=== PATIENT | female | born 1960 | race Hispanic/Latino ===

== ENCOUNTER 2021-10-31 13:34 | Inpatient (IN) | payer SELFPAY ==
[2021-10-31 13:37] VITALS: BP 120/80
--- NOTE | 2021-10-31 15:04 | Event Note ---
Face to Face: For this encounter I have reviewed the PA/CHANNEL EXECUTIVE documentation, treatment plan, medical decision making, and I had face to face time with this patient.
--- NOTE | 2021-10-31 15:17 | Emergency Department Report ---
- General Chief complaint: Weakness Stated complaint: WEAKNESS Time Seen by Provider: 10/31/21 15:10 Source: EMS Mode of arrival: Ambulatory Limitations: No Limitations - History of Present Illness Initial comments: Patient presents with weakness. She apparently came in by ambulance because sometime in the night she developed some weakness. She states that she has no idea when this occurred. She knows that when she went to bed, she did not feel this way. However she does not know what time she went to bed. She states that her right arm does not seem to want to cooperate. She reports numbness in her hand. She reports numbness in her foot. This is also on the right. She is worried that she is having a stroke. Patient states that she just does not "know what the other side wants to do." Patient has no pain. She has no blurry vision or double vision. She states that she has had a stroke before but did not have any residual deficit. She then later states that she was weak from a stroke. Patient has no cough or congestion. There is no vomiting or diarrhea. She has no chest pain or shortness of breath. - Related Data Home Medications Medication Instructions Recorded Confirmed Last Taken Estrogens, Conjugated (Nf) 1.25 mg PO DAILY 08/09/14 09/08/14 09/08/14 [Premarin] 1.25mg Eszopiclone [Lunesta] 3 mg PO HS 08/09/14 09/08/14 09/07/14 3 mg LORazepam [Ativan] 3 mg PO PRN 08/09/14 09/08/14 09/08/14 3 mg Potassium Citrate [Potassium 1 tab PO BID 08/09/14 09/08/14 09/05/14 Citrate ER] 1 tab HYDROcodone/APAP 5-325 [[place] 1 each PO Q4-6H PRN 09/03/14 09/08/14 09/02/14 5/325 mg] Allergies Allergy/AdvReac Type Severity Reaction Status Date / Time morphine Allergy Intermediate Itching Verified 10/31/21 13:37 ED Review of Systems ROS: Stated complaint: WEAKNESS Other details as noted in HPI Comment: All other systems reviewed and negative Constitutional: denies: fever Eyes: denies: vision change ENT: denies: throat pain Respiratory: denies: cough Cardiovascular: denies: chest pain Endocrine: denies: unexplained weight loss Gastrointestinal: denies: abdominal pain Genitourinary: denies: dysuria Musculoskeletal: denies: back pain Skin: denies: rash Neurological: as per HPI. denies: headache Hematological/Lymphatic: denies: easy bruising ED Past Medical Hx - Past Medical History Hx Hypertension: No Hx Heart Attack/AMI: No Hx Diabetes: No Hx GERD: Yes Hx Liver Disease: Yes (hepatitis C) Hx Renal Disease: Yes (kidney stones. pt claims has them currently) Hx Sickle Cell Disease: No Hx Seizures: No Hx Kidney Stones: Yes Hx HIV: No - Surgical History Hx Appendectomy: Yes Additional Surgical History: KIDNEY STONE SURGERY JUN 16, 2014/ PANCREAS SURGERY 2013 - Family History Family history: hypertension - Social History Smoking Status: Current Every Day Smoker (We discussed tobacco cessation x3 minutes) - Medications Home Medications: Home Medications Medication Instructions Recorded Confirmed Last Taken Type Estrogens, Conjugated (Nf) 1.25 mg PO DAILY 08/09/14 09/08/14 09/08/14 History [Premarin] 1.25mg Eszopiclone [Lunesta] 3 mg PO HS 08/09/14 09/08/14 09/07/14 History 3 mg LORazepam [Ativan] 3 mg PO PRN 08/09/14 09/08/14 09/08/14 History 3 mg Potassium Citrate [Potassium 1 tab PO BID 08/09/14 09/08/14 09/05/14 History Citrate ER] 1 tab HYDROcodone/APAP 5-325 [[place] 1 each PO Q4-6H PRN 09/03/14 09/08/14 09/02/14 History 5/325 mg] ED Physical Exam - General Limitations: Altered Mental Status (Tearful to the point of bordering hysteria), Other (Pulse ox noted and normal) General appearance: alert, in no apparent distress (No respiratory distress) - Head Head exam: Present: atraumatic, normocephalic, normal inspection - Eye Eye exam: Present: normal appearance, EOMI. Absent: scleral icterus - ENT ENT exam: Present: normal orophraynx, normal external ear exam - Neck Neck exam: Present: normal inspection. Absent: meningismus - Respiratory Respiratory exam: Present: normal lung sounds bilaterally. Absent: respiratory distress - Cardiovascular Cardiovascular Exam: Present: normal rhythm. Absent: bradycardia - GI/Abdominal GI/Abdominal exam: Present: soft. Absent: tenderness - Extremities Exam Extremities exam: Present: normal capillary refill. Absent: calf tenderness - Back Exam Back exam: Absent: CVA tenderness (R), CVA tenderness (L) - Neurological Exam Neurological exam: Present: alert, oriented X3, CN II-XII intact, reflexes normal, other (Patient reports having problems controlling her right arm, but when she is focusing on things that she wants to do as opposed to tasks, she is able to control her right arm without difficulty.) - Psychiatric Psychiatric exam: Present: anxious (And tearful) - Skin Skin exam: Present: warm, dry - Assessment Assessment Interval: Baseline - Level of Consciousness 1a. Level of Consciousness: alert/keenly responsive - LOC Questions 1b. LOC Questions: answers both correctly - LOC Command 1c. LOC Commands: performs tasks correctly - Best Gaze 2. Best Gaze: normal - Visual 3. Visual: no visual loss - Facial Palsy 4. Facial Palsy: normal symmetrical movement - Motor Arm 5a. Motor Arm Left: no drift 5b. Motor Arm Right: no drift - Motor Leg 6a. Motor Leg Left: no drift 6b. Motor Leg Right: no drift - Limb Ataxia 7. Limb Ataxia: present 1 limb - Sensory 8. Sensory: normal - Best Language 9. Best Language: no aphasia - Dysarthria 10. Dysarthria: normal - Extinction and Inattention 11. Extinction/Inattention: no abnormality - Scoring Total Score: 1 Stroke Severity: Minor Stroke ED Course Vital Signs 10/31/21 13:35 Temperature 98.3 F Pulse Rate 67 Respiratory 20 Rate Blood Pressure 120/80 [Left] O2 Sat by Pulse 100 Oximetry - Reevaluation(s) Reevaluation #1: 10/31/21 15:18 Patient was seen and labs ordered. Old records noted. Reevaluation #2: 10/31/21 15:41 CT reading was noted and discussed with radiologist. We will proceed with admission at this time. Reevaluation #3: 10/31/21 16:07 Dr. Cho was paged for the admission. Labs have been reviewed. ED Medical Decision Making - Lab Data Result diagrams: 10/31/21 15:08 Rhythm strip: Normal sinus rhythm without ectopy per monitor observed in seconds. - Radiology Data Radiology results: report reviewed - Medical Decision Making Patient presented with reports of right-sided weakness. Her exam was equivocal and seem to be variable. CT demonstrated what appeared to be an old stroke. It was read as subacute by radiology. We will proceed with admission and further neurologic evaluation. There was no tumor or bleed. There was no noted mass. Critical Care Time: No Critical care attestation.: If time is entered above; I have spent that time in minutes in the direct care of this critically ill patient, excluding procedure time. ED Disposition Clinical Impression: CVA (cerebral vascular accident) Qualifiers: CVA mechanism: unspecified Qualified Code(s): I63.9 - Cerebral infarction, unspecified Disposition: 09 ADMITTED INPATIENT Is pt being admited?: Yes Condition: Stable Referrals: PRIMARY CARE, [Primary Care Provider] - 3-5 Days
[2021-10-31] MEDS ORDERED: ASPIRIN 81 MG TAB CHEW PO ONE (15:40)
--- NOTE | 2021-10-31 15:40 | Cat Scan Report ---
CT HEAD WITHOUT CONTRAST INDICATION / CLINICAL INFORMATION: acute right sided weakness. TECHNIQUE: Axial imaging performed from the skull apex through the skull base without the use of cont rast. Sagittal and coronal reformatted images. All CT scans at this location are performed using CT dose reduction for ALARA by means of automated exposure control. COMPARISON: None available. FINDINGS: CEREBRAL PARENCHYMA: There is a moderate size area of diminished attenuation in the left parietal lob e measuring up to 3.5 x 5.5 cm in axial plane. There is loss of pitts-white interface in this area. Th is has the appearance of a subacute ischemic stroke. The remaining brain parenchyma density is within normal limits. No chronic infarct. HEMORRHAGE: None. EXTRA-AXIAL SPACES: Normal in size and morphology for the patient's age. VENTRICULAR SYSTEM: Normal in size and morphology for the patient's age. MIDLINE SHIFT OR HERNIATION: None. CEREBELLUM / BRAINSTEM: No significant abnormality. CALVARIUM: No significant abnormality. ORBITS: Normal as visualized. PARANASAL SINUSES / MASTOID AIR CELLS: Normal as visualized. SOFT TISSUES of HEAD: No significant abnormality. ADDITIONAL FINDINGS: None. IMPRESSION: Subacute appearing ischemic infarct in the left parietal lobe as described. No evidence for hemorrhag e or mass effect. CRITICAL RESULT: Time of Discovery (TRENCH PIPE LAYER/CDT): 1432 hours Time of Communication (TRENCH PIPE LAYER/CDT): 1435 hours Licensed Practitioner Receiving Report: Dr. Mark Gomez Read-Back Performed: Yes. Signer Name: Rahat Tolbert Jr, MD Signed: 10/31/2021 3:35 PM Workstation Name: [id number]
[2021-10-31 15:51] LABS: Hematocrit 42.7 % (30.3-42.9); Hemoglobin 13.4 gm/dl (10.1-14.3); Mean Corpuscular HGB Conc 31 % (30-34); Mean Corpuscular Volume 98 fl (79-97); Platelet Count 317 K/mm3 (140-440); Red Blood Count 4.37 M/mm3 (3.65-5.03); Red Cell Distribution Width 14.9 % (13.2-15.2)
[2021-10-31 16:04] LABS: Alanine Aminotransferase 6 units/L (7-56); Blood Urea Nitrogen 10 mg/dL (7-17); Calcium 9.9 mg/dL (8.4-10.2); Hemolysis Index 12
[2021-10-31 16:17] LABS: BUN/Creatinine Ratio 14
[2021-10-31 17:35] LABS: Total Cells Counted 100
[2021-10-31 17:36] LABS: Band Neutrophils # (Manual) 0.1 K/mm3; Basophils % (Manual) 0 % (0.0-1.8); Eosinophils % (Manual) 0 % (0.0-4.3)
[2021-10-31 17:37] LABS: Platelet Estimate Consistent w Auto
--- NOTE | 2021-10-31 20:57 | Event Note ---
Date: 10/31/21 Patient reevaluated No signs and symptoms of stroke Patient walking normally Normal power in the right upper and right lower extremity CAT scan shows subacute infarct which may be remote. Patient is not a smoker. Patient discharged on aspirin and Plavix And Lipitor. Discharge diagnosis Remote subacute CVA--completely resolved Patient to follow with primary care physician Patient advised to take Plavix aspirin and statins Patient advised not to smoke. Patient is not a smoker
[2021-10-31] MEDS ORDERED: HYDROmorphone 1 MG/1 ML INJ IV PRN (21:51)
[2021-10-31] MEDS ORDERED: HYDROmorphone 1 MG/1 ML INJ ONE (21:52)
== END 2021-10-31 22:00 | disposition home or self-care (01) | DRG 66 ==
LOC: ED 13:34 → 4A 16:07
PROVIDERS: ADMIT Internal Medicine; ATTEND Internal Medicine
DX: I63.9 Cerebral infarction, unspecified (principal); K21.9 Gastro-esophageal reflux disease without esophagitis; B19.20 Unspecified viral hepatitis C without hepatic coma; Z90.49 Acquired absence of other specified parts of digestive tract; Z82.49 Family history of ischemic heart disease and other diseases of the circulatory system; F17.200 Nicotine dependence, unspecified, uncomplicated
CPT/HCPCS: 36415; 70450; 80053; 84484; 85007; 85025; G0378; J1170